=== PATIENT | female | born 1980 ===

== ENCOUNTER 2018-09-05 11:16 | Outpatient (CLI) | payer OTHER | END 2018-09-05 11:18 | disposition home or self-care (01) | LOC: SONOGRAMA 11:16 → MAMO-SONO 09-06 10:15 | DX: N93.8 Other specified abnormal uterine and vaginal bleeding (principal); N83.00 Follicular cyst of ovary, unspecified side ==

== ENCOUNTER 2019-07-25 08:00 | Outpatient (CLI) | payer OTHER | END 2019-07-25 16:45 | disposition home or self-care (01) | LOC: RX STUDY 08:00 | DX: D25.1 Intramural leiomyoma of uterus (principal); R10.2 Pelvic and perineal pain; N84.0 Polyp of corpus uteri ==